=== PATIENT | female | born 1980 | race African-American/Black ===

== ENCOUNTER 2022-03-07 10:16 | Emergency (ER) | payer BC ==
[~2022-03-07] VITALS: Ht 167.6 cm; Wt 68.5 kg
[2022-03-07] MEDS ORDERED: prenatal vitamins (10:25)
[2022-03-07] MEDS ORDERED: ACETAMINOPHEN 325MG TABLET PO ONE (10:45)
[2022-03-07] MEDS ORDERED: SODIUM CHLORIDE 0.9% 1,000 ML IV ONE ×2 (10:45→14:30)
[2022-03-07 11:54] LABS: BASOPHILS % 0.6 % (0.0-2.0); CHLORIDE 107 mEq/L (98-107); HEMATOCRIT. 43.7 % (36.0-48.0); HEMOGLOBIN. 14.3 g/dL (12.0-16.0); LYMPHOCYTES % 16.6 % (20.0-50.0); MEAN CORPUSCULAR VOLUME 82.6 fL (81.0-99.0); MONOCYTES % 5.2 % (2.0-8.0); NEUTROPHILS % 76.6 % (40.0-76.0); PLATELET 309 x1000/uL (130-400); RED BLOOD CELL COUNT 5.29 mill/uL (4.2-5.4); RED CELL DISTRIBUTION WIDTH 14.2 % (11.6-14.6)
[2022-03-07] MEDS ORDERED: ONDANSETRON HCL 4MG/2ML INJ IV STA (12:00)
[2022-03-07] MEDS ORDERED: MORPHINE SULFATE 4 MG/ML CPJ (NOT FOR IM USE) IV STA (12:00)
[2022-03-07 12:05] LABS: B-HCG QUANTITATIVE 46 mIU/mL (<3)
[2022-03-07] MEDS ORDERED: DEXT 5%/LR + PITOCIN 20UNITS/L 1,000 ML IV SCH (12:15)
[2022-03-07] MEDS ORDERED: OXYTOCIN 30 UNITS/500ML NS PMX 500 ML IV ONE (12:15)
[2022-03-07] MEDS ORDERED: MISOPROSTOL 200MCG TABLET PO ONE (14:15)
[2022-03-07 14:20] LABS: BASOPHILS % 0.5 % (0.0-2.0); EOSINOPHILS % 0.3 % (0.0-5.0); HEMOGLOBIN. 12.9 g/dL (12.0-16.0); LYMPHOCYTES % 9.2 % (20.0-50.0); MEAN CORPUSCULAR HEMOGLOBIN 26.5 pg (28.0-32.0); MEAN PLATELET VOLUME 8.9 fl (7.4-10.4); MONOCYTES % 3.4 % (2.0-8.0); NEUTROPHILS % 86.6 % (40.0-76.0); PLATELET 302 x1000/uL (130-400); RED BLOOD CELL COUNT 4.88 mill/uL (4.2-5.4); RED CELL DISTRIBUTION WIDTH 13.8 % (11.6-14.6)
[2022-03-07 17:35] VITALS: BP 158/87
== END 2022-03-07 17:36 | disposition home or self-care (01) ==
LOC: ER 10:16
DX: O03.9 Complete or unspecified spontaneous abortion without complication (principal); Z3A.18 18 weeks gestation of pregnancy; I10 Essential (primary) hypertension
CPT/HCPCS: 36415; 76805; 80053; 84702; 85025; 86850; 86900; 86901; 88307; 88309; 96361; 96374; 96375; 99291; J2270; J2405; J7030; J2590